=== PATIENT | female | born 1985 | race Caucasian/White ===

== ENCOUNTER 2024-09-05 21:35 | Emergency (ER) | payer MEDICAID ==
[~2024-09-05] VITALS: Ht 157.5 cm; Wt 77.3 kg
[2024-09-05 21:41] VITALS: BP 146/91; PULSE 90; O2SAT 99
[2024-09-05] MEDS ORDERED: AMOX-580 PO (23:28)
[2024-09-05 23:39] VITALS: TEMP 98.2
[2024-09-05] MEDS: amox tr/potassium clavulanate 875/125mg TAB PO ONE (23:42)
[2024-09-05 23:45] VITALS: RESP 18
[2024-09-05] MEDS: ketorolac trometh 15mg/ml vial 15 MG/ML ML IM ONE (23:45)
== END 2024-09-05 23:51 | disposition home or self-care (01) ==
LOC: ER 21:35
DX: K08.89 Other specified disorders of teeth and supporting structures (principal); Z79.2 Long term (current) use of antibiotics
CPT/HCPCS: 96372; 99283; J1885

== ENCOUNTER 2025-04-03 09:43 | Emergency (ER) | payer MEDICAID ==
[~2025-04-03] VITALS: Ht 157.5 cm; Wt 78.5 kg
[2025-04-03 10:01] VITALS: BP 152/89; PULSE 76; O2SAT 99
[2025-04-03] MEDS: ketorolac trometh 30MG/ML vial 30 MG/ML VIAL IM ONE (10:39)
[2025-04-03] MEDS ORDERED: CYCL-1 PO (10:46)
[2025-04-03] MEDS ORDERED: LIDO700A47 TOP (10:46)
[2025-04-03] MEDS ORDERED: IBUP-864 PO (10:46)
--- NOTE | 2025-04-03 10:47 | Physician Documentation ---
History of Present Illness ~ Chief Complaint: Leg Pain Stated Complaint: LOWER BACK PAIN Time Seen by MD: 10:05 HPI 39-year-old female experiencing acute on chronic sciatic pain with pain to her right lower extremity without evidence of injury or triggering events. Started approximately 1 week ago with sciatic pain and 3 days ago with her right leg pain Medication Reconciliation Allergies: Coded Allergies: No Known Allergies (Unverified , 04/03/25) Scheduled Cyclobenzaprine* (Cyclobenzaprine*), 1 TAB PO Q8H Ibuprofen (Ibu), 1 TAB PO Q8H Lidocaine (Lidocaine), 1 PATCH TOP DAILY Past Medical History Past Medical History: *MUSCULOSKELETAL*, Chronic Back Pain Past Surgical History: noncontributory Lives with: Family Lives In: Home Review of Systems All Other Systems at this time: Reviewed and Negative Musculoskeletal: Reports: see HPI Physical Exam Vital Signs: RN Vital Signs have been reviewed: Yes, Temperature: 97.7, Source: Temporal, Heart Rate: 76, Respiratory Rate: 16, BP: 152/89, Pulse Oximetry: 99, Weight: 78.500 Oxygen Flow Rate: 0 Physical Exam General: Alert, no apparent distress. HEENT: moist mucous membranes. Neck: Full range of motion. Respiratory: No respiratory distress speaking in full sentences Chest: No accessory muscle use. Cardiovascular: Appears well perfused Neurologic: Oriented x4. Psychiatric: Normal mood and affect. Skin: Normal color, warm and dry. No edema, no ecchymosis. Progress Results/Orders Results/Orders Completed Orders - DIANE RIAVS NP Ketorolac Trometh 30mg/Ml Vial (Toradol (04/03/25 10:20) Cyclobenzaprine Tablet (Flexeril Tablet) (04/03/25 10:20) Lidocaine 5% Patch (Lidoderm 5% Patch) (04/03/25 10:16) Medications Received in ER Medications (Trade) Dose Ordered Sig/Mojgan Route PRN Reason Start Time Stop Time Status Last Admin Dose Admin (Toradol inj. 30mg/ml) 30 mg ONCE ONCE IM 04/03/25 10:20 04/03/25 10:21 DC 04/03/25 10:39 30 MG (Flexeril tablet) 10 mg ONCE ONCE PO 04/03/25 10:20 04/03/25 10:21 DC 04/03/25 10:39 10 MG (Lidoderm 5% Patch) 1 patch STAT STAT TP 04/03/25 10:16 04/03/25 10:17 DC 04/03/25 10:39 1 PATCH Vital Signs 04/03/25 04/03/25 10:01 10:39 Temp 97.7 Pulse 76 Resp 16 16 B/P (MAP) 152/89 Pulse Ox 99 O2 Flow Rate 0 Medical Decision Making Findings Acute exacerbation of sciatic pain without injury or evidence of injury. Toradol and Flexeril provided. Patient had some relief of symptoms with me dications. Patient does have primary care and will follow up with primary care. Departure Time of Disposition: 11:21 Disposition: HOME / SELF CARE / HOMELESS Impression: Primary Impression: Sciatica Qualified Codes: M54.31 - Sciatica, right side Additional Impression: Muscle strain Discharge Instructions: Sciatica Additional Instructions: Call and follow up with primary care for possible referrals for physical therapy there are stretches to do for sciatic pain. Take medications as prescribed and follow up Referrals: NO PRIMARY CARE PROVIDER (PCP) Prescriptions Lidocaine (Lidocaine) 5 % Adh..patch 1 PATCH TOP DAILY for 30 Days, #30 PATCH 0 Refills Prov: DIANE RIVAS NP 04/03/25 Cyclobenzaprine* (Cyclobenzaprine*) 10 Mg Tablet 1 TAB PO Q8H for muscle spasms for 10 Days, #30 TAB 0 Refills Prov: DIANE RIVAS NP 04/03/25 Ibuprofen (Ibu) 800 Mg Tablet 1 TAB PO Q8H for 7 Days, #21 TAB 0 Refills Prov: DIANE RIVAS NP 04/03/25 Education Educated: Patient Educated regarding: diagnosis, treatment, need for follow up Signature Scribe Signature: No scribe Attestation: The note accurately reflects work and decisions made by me.Diane Rivas - [employer] APPRENTICE 04/03/25 10:46 DIANE RIVAS NP Apr 03, 2025 10:46
[2025-04-03 11:54] VITALS: RESP 16
[2025-04-03] MEDS: HYDROcodone/acetaminophen 10/325mg tab PO ONE (11:54)
[2025-04-03 11:56] VITALS: TEMP 97.7
== END 2025-04-03 11:58 | disposition home or self-care (01) ==
LOC: ER 09:43
DX: S86.911A Strain of unspecified muscle(s) and tendon(s) at lower leg level, right leg, initial encounter (principal); X58.XXXA Exposure to other specified factors, initial encounter; Y93.89 Activity, other specified; Y92.89 Other specified places as the place of occurrence of the external cause; Y99.8 Other external cause status
CPT/HCPCS: 96372; 99284; J1885